=== PATIENT | female | born 1960 | race Caucasian/White ===

== ENCOUNTER 2017-03-09 09:54 | Emergency (ER) | payer BC ==
[~2017-03-09] VITALS: Ht 165.1 cm; Wt 89.0 kg
[2017-03-09 10:24] VITALS: BP 149/87; PULSE 81; RESP 16; TEMP 98; O2SAT 95
--- NOTE | 2017-03-09 10:39 | PD ---
HPI Chief Complaint: Numbness/Tingling Time Seen by Provider: 10:32 Travel History International Travel<30 days: No Contact w/Intl Traveler<30days: No Traveled to known affect area: No History of Present Illness HPI PT C/O 2 WEEKS SYMPTOMS OF INTERMITTENT, DIZZINESS, ASSOC WITH TINGLING SENSATION TO HANDS/FEET BILATERALLY, NO LATERALIZING WEAKNESS, NO GERARD/FEVER/COUGH /PROD SPUTUM. LASTS ABOUT 10-20MINUTES THEN RESOLVES ON ITS OWN. PATIENT HAS NOT FOLLOW UP WITH HER PCP ABOUT THIS, DESPITE THE FACT THAT HAS BEEN GOING ON FOR WEEKS. PCP IS DR PORTER ALL:[facility] PMHX PFSH Social History Tobacco Use: No Allergies-Medications (Allergen,Severity, Reaction): Coded Allergies: No Known Allergies (Unverified , 03/09/17) Reported Meds & Prescriptions Reported Meds & Active Scripts Active No Active Prescriptions or Reported Medications Review of Systems Except as stated in HPI: all other systems reviewed are Neg General / Constitutional: No: Fever Eyes: No: Visual changes HENT: No: Headaches Cardiovascular: No: Chest Pain or Discomfort Respiratory: No: Shortness of Breath Gastrointestinal: No: Abdominal Pain Genitourinary: No: Dysuria Musculoskeletal: No: Pain Skin: No Rash Neurologic: Positive: Paresthesia, No: Weakness Psychiatric: No: Depression Endocrine: No: Polydipsia Hematologic/Lymphatic: No: Easy Bruising Physical Exam Narrative GENERAL: SKIN: Warm and dry. HEAD: Atraumatic. Normocephalic. EYES: Pupils equal and round. No scleral icterus. No injection or drainage. ENT: No nasal bleeding or discharge. Mucous membranes pink and moist. NECK: Trachea midline. No JVD. CARDIOVASCULAR: Regular rate and rhythm. RESPIRATORY: No accessory muscle use. Clear to auscultation. Breath sounds equal bilaterally. GASTROINTESTINAL: Abdomen soft, non-tender, nondistended. Hepatic and splenic margins not palpable. MUSCULOSKELETAL: Extremities without clubbing, cyanosis, or edema. No obvious deformities. NEUROLOGICAL: Awake and alert. No obvious cranial nerve deficits. Motor grossly within normal limits. Five out of 5 muscle strength in the arms and legs. Normal speech. PSYCHIATRIC: Appropriate mood and affect; insight and judgment normal. Data Data Last Documented VS Orders Orders Electrocardiogram (03/09/17 10:32) Complete Blood Count With Diff (03/09/17 10:32) Comprehensive Metabolic Panel (03/09/17 10:32) Troponin I (03/09/17 10:32) Prothrombin Time / Inr (Pt) (03/09/17 10:32) Act Partial Throm Time (Ptt) (03/09/17 10:32) Lipase (03/09/17 10:32) Urinalysis - C+S If Indicated (03/09/17 10:32) Thyroid Stimulating Hormone (03/09/17 10:32) Chest, Single Ap (03/09/17 10:32) Ct Brain W/O Iv Contrast(Rout) (03/09/17 10:32) Ed Discharge Order (03/09/17 12:21) Labs Laboratory Tests Test 03/09/17 11:07 White Blood Count 3.5 TH/MM3 Red Blood Count 4.90 MIL/MM3 Hemoglobin 14.3 GM/DL Hematocrit 43.5 % Mean Corpuscular Volume 88.8 FL Mean Corpuscular Hemoglobin 29.1 PG Mean Corpuscular Hemoglobin Concent 32.7 % Red Cell Distribution Width 12.9 % Platelet Count 195 TH/MM3 Mean Platelet Volume 9.1 FL Neutrophils (%) (Auto) 56.7 % Lymphocytes (%) (Auto) 34.2 % Monocytes (%) (Auto) 7.1 % Eosinophils (%) (Auto) 1.3 % Basophils (%) (Auto) 0.7 % Neutrophils # (Auto) 2.0 TH/MM3 Lymphocytes # (Auto) 1.2 TH/MM3 Monocytes # (Auto) 0.3 TH/MM3 Eosinophils # (Auto) 0.0 TH/MM3 Basophils # (Auto) 0.0 TH/MM3 CBC Comment DIFF FINAL Differential Comment Prothrombin Time 10.5 SEC Prothromb Time International Ratio 1.0 RATIO Activated Partial Thromboplast Time 27.5 SEC Urine Collection Type VOIDED Urine Color YELLOW Urine Turbidity CLEAR Urine pH 6.5 Urine Specific [place] 1.015 Urine Protein NEG mg/dL Urine Glucose (UA) NEG mg/dL Urine Ketones NEG mg/dL Urine Occult Blood NEG Urine Nitrite NEG Urine Bilirubin NEG Urine Leukocyte Esterase NEG Urine WBC 0-2 /hpf Microscopic Urinalysis Comment CULT NOT INDICATED Urine Collection Time 1107 Blood Urea Nitrogen 13 MG/DL Creatinine 0.90 MG/DL Random Glucose 83 MG/DL Total Protein 7.0 GM/DL Albumin 3.4 GM/DL Calcium Level 8.5 MG/DL Alkaline Phosphatase 74 U/L Aspartate Amino Transf (AST/SGOT) 25 U/L Alanine Aminotransferase (ALT/SGPT) 31 U/L Total Bilirubin 1.0 MG/DL Sodium Level 140 MEQ/L Potassium Level 3.8 MEQ/L Chloride Level 106 MEQ/L Carbon Dioxide Level 28.4 MEQ/L Anion Gap 6 MEQ/L Estimat Glomerular Filtration Rate 65 ML/MIN Troponin I LESS THAN 0.02 NG/ML Lipase 107 U/L Thyroid Stimulating Hormone 3rd Gen 2.540 uIU/ML MDM Medical Decision Making Medical Screen Exam Complete: Yes Emergency Medical Condition: Yes Medical Record Reviewed: Yes Interpretation(s) NSR , 67, NL INTERVALS, NO STEMI PATTERN. Differential Diagnosis SUB ACUTE CVA V ICH V HYPOGLYCEMIA V THYROID DISORDER V Narrative Course CT NEG FOR ICH/ISCHEMIC CVA OR BRAIN MASS, THYROID FUNCTION NORMAL...ELECTROLYTES NORMAL, Diagnosis Primary Impression: Paresthesia Patient Instructions: General Instructions, Paresthesia (ED) Additional Instructions: PLEASE MAKE AN APPOINTMENT WITH YOUR DOCTOR TO HAVE FURTHER EVALUATION, TODAY YOU HAD NORMAL THYROID TEST, NORMAL LIVER/KIDNEY/PANCREAS FUNCTIONS, NORMAL ELECTROLYTES AND CT HEAD DID NOT SHOW EVIDENCE OF BRAIN BLEED, BRAIN MASS OR OF STROKE (OVER THE PAST 2 WEEKS). Scripts No Active Prescriptions or Reported Meds Disposition: 01 DISCHARGE HOME Condition: Stable Gabe Russo MD Mar 09, 2017 10:39
--- NOTE | 2017-03-09 11:02 | RADRPT ---
EXAM DATE/TIME: 03/09/2017 10:51 [facility] COMPARISON: No previous studies available for comparison. INDICATIONS : Dizziness. Left arm numbness and tingling. RADIATION DOSE: 62.61 CTDIvol (mGy) MEDICAL HISTORY : None SURGICAL HISTORY : None. ENCOUNTER: Initial ACUITY: 2 weeks PAIN SCALE: 0/10 LOCATION: cranial TECHNIQUE: Multiple contiguous axial images were obtained of the head. Using automated exposure control and adj ustment of the mA and/or kV according to patient size, radiation dose was kept as low as reasonably a chievable to obtain optimal diagnostic quality images. DICOM format image data is available electro nically for review and comparison. FINDINGS: CEREBRUM: The ventricles are normal for age. No evidence of midline shift, mass lesion, hemorrhage or acute in farction. No extra-axial fluid collections are seen. POSTERIOR FOSSA: The cerebellum and brainstem are intact. The 4th ventricle is midline. The cerebellopontine angle i s unremarkable. EXTRACRANIAL: The visualized portion of the orbits is intact. SKULL: The calvaria is intact. No evidence of skull fracture. CONCLUSION: No acute intracranial findings. Dm Landrum MD on March 09, 2017 at 10:55 Board Certified Radiologist. This report was verified electronically.
[2017-03-09 11:16] LABS: BILIRUBIN, URINE NEG (NEG); BLOOD, URINE NEG (NEG); GLUCOSE,URINE NEG (NEG); KETONE, URINE NEG (NEG); NITRITE,URINE NEG (NEG); PH, URINE 6.5 (5.0-8.5); URINE LEUKOCYTE ESTERASE NEG (NEG)
--- NOTE | 2017-03-09 11:20 | RADRPT ---
EXAM DATE/TIME: 03/09/2017 11:00 [facility] COMPARISON: No previous studies available for comparison. INDICATIONS : Short of breath, chest pain. MEDICAL HISTORY : None. SURGICAL HISTORY : None. ENCOUNTER: Initial ACUITY: 3 days PAIN SCORE: 1/10 LOCATION: Bilateral chest FINDINGS: A single view of the chest demonstrates the lungs to be symmetrically aerated without evidence of mas s, infiltrate or effusion. The cardiomediastinal contours are unremarkable. Osseous structures are intact. CONCLUSION: No acute disease. Twan Guido Jr., MD on March 09, 2017 at 11:17 Board Certified Radiologist. This report was verified electronically.
[2017-03-09 11:23] LABS: CHLORIDE 106 MEQ/L (98-107); SODIUM (NA) 140 MEQ/L (136-145)
[2017-03-09 11:24] LABS: URINE COLOR YELLOW (YELLW/STRAW); WBC, URINE 0-2 /hpf (0-5)
[2017-03-09 11:27] LABS: ALBUMIN 3.4 GM/DL (3.4-5.0); BASOPHIL % 0.7 % (0.0-2.0); BICARBONATE 28.4 MEQ/L (21.0-32.0); CALCIUM 8.5 MG/DL (8.5-10.1); EOSINOPHIL % 1.3 % (0.0-4.0); GLUCOSE,RANDOM 83 MG/DL (74-106); HEMATOCRIT 43.5 % (35.0-46.0); HEMOGLOBIN 14.3 GM/DL (11.6-15.3); LIPASE 107 U/L (73-393); LYMPH % 34.2 % (9.0-44.0); LYMPHOCYTE # 1.2 TH/MM3 (1.0-4.8); MEAN CELL VOLUME 88.8 FL (80.0-100.0); MEAN CORPUSCULAR HEMOGLOBIN 29.1 PG (27.0-34.0); MEAN CORPUSCULAR HGB CONC 32.7 % (32.0-36.0); MEAN PLATELET VOLUME 9.1 FL (7.0-11.0); MONO % 7.1 % (0.0-8.0); MONOCYTE # 0.3 TH/MM3 (0-0.9); NEUT % 56.7 % (16.0-70.0); PLATELET COUNT 195 TH/MM3 (150-450); RED CELL DISTRIBUTION WIDTH 12.9 % (11.6-17.2); WHITE BLOOD COUNT 3.5 TH/MM3 (4.0-11.0)
[2017-03-09 11:28] LABS: BLOOD UREA NITROGEN 13 MG/DL (7-18)
[2017-03-09 11:30] LABS: ALT (GPT) 31 U/L (10-53); AST (GOT) 25 U/L (15-37); GLOMERULAR FILTRATION RATE 65 ML/MIN (>89)
[2017-03-09 11:33] LABS: ALKALINE PHOSPHATASE 74 U/L (45-117)
[2017-03-09 11:36] LABS: PROTHROMBIN TIME - PATIENT 10.5 SEC (9.8-11.6); TROPONIN I LESS THAN 0.02 NG/ML (0.02-0.05)
[2017-03-09 12:30] VITALS: BP 149/85
--- NOTE | 2017-03-09 22:45 | EKG ---
Date Performed: 03/09/2017 Time Performed: 10:42:00 PTAGE: 56 years EKG: Sinus rhythm NORMAL ECG NO PREVIOUS TRACING DOCTOR: Grant Yeager Interpretating Date/Time 03/09/2017 22:44:28
== END 2017-03-09 12:43 | disposition home or self-care (01) ==
LOC: PHED 09:54
DX: R20.2 Paresthesia of skin (principal)
CPT/HCPCS: 70450; 71045; 80053; 81001; 83690; 84443; 84484; 85025; 85610; 85730; 93005; 99285

== ENCOUNTER 2017-04-29 18:00 | Emergency (ER) | payer BC ==
[~2017-04-29] VITALS: Ht 165.1 cm; Wt 90.0 kg
[2017-04-29 18:18] VITALS: BP 183/85; PULSE 106; RESP 16; TEMP 98; O2SAT 95
[2017-04-29] MEDS ORDERED: ZITHTAB PO (18:22)
[2017-04-29] MEDS ORDERED: PRED20 PO (18:22)
[2017-04-29] MEDS ORDERED: BENZ1CAP51 PO (18:22)
--- NOTE | 2017-04-29 18:24 | PD ---
HPI Chief Complaint: Cold / Flu Symptoms Time Seen by Provider: 18:14 Travel History International Travel<30 days: No Contact w/Intl Traveler<30days: No Traveled to known affect area: No History of Present Illness HPI 56-year-old female presents to the emergency department for evaluation of dry cough for 3 weeks. She also states she started with bilateral ear pain and sore throat yesterday. She reports intermittent low-grade fevers. No chest pain. No abdominal pain. She states she feel nauseated yesterday, but did not vomit. She reports history lymphedema to the left lower extremity and possible TIA. She is not currently on any prescribed medications. She has been taking Mucinex [id number] without improvement. No exacerbating or alleviating factors. Moderate severity. PFSH Past Medical History Cancer: Yes (melanoma) Cerebrovascular Accident: Yes (possible TIA) Past Surgical History Other Surgery: Yes (lymphnodes removed from left groin r/t melanoma) Social History Alcohol Use: No Tobacco Use: No Substance Use: No Allergies-Medications (Allergen,Severity, Reaction): Coded Allergies: No Known Allergies (Unverified , 04/29/17) Reported Meds & Prescriptions Reported Meds & Active Scripts Active No Active Prescriptions or Reported Medications Review of Systems Except as stated in HPI: all other systems reviewed are Neg Physical Exam Narrative GENERAL: Well-nourished, well-developed female patient, ambulatory. Afebrile. SKIN: Focused skin assessment warm/dry. HEAD: Normocephalic. Atraumatic. ENT: Mucosa pink and moist. No erythema or exudates. No uvular edema. No uvular , palatal, or tonsillar deviation. Airway patent. Nasal turbinates appear normal without nasal blood, purulent drainage or septal hematoma. Bilateral tympanic membranes are clear without erythema or perforation. EYES: No scleral icterus. No injection or drainage. NECK: Supple, trachea midline. No JVD or lymphadenopathy. CARDIOVASCULAR: Regular rate and rhythm without murmurs, gallops, or rubs. RESPIRATORY: Breath sounds equal bilaterally. No accessory muscle use. Lungs sounds are clear to auscultation. Dry cough noted. GASTROINTESTINAL: Abdomen soft, non-tender, nondistended. MUSCULOSKELETAL: No cyanosis, or edema. BACK: Nontender without obvious deformity. No CVA tenderness. Data Data Last Documented VS Vital Signs Date Time Temp Pulse Resp B/P (MAP) Pulse Ox O2 Delivery O2 Flow Rate FiO2 04/29/17 18:18 98.0 106 16 183/85 (117) 95 MDM Medical Decision Making Medical Screen Exam Complete: Yes Emergency Medical Condition: Yes Medical Record Reviewed: Yes Differential Diagnosis URI versus bronchitis versus pneumonia versus sinusitis Narrative Course 56-year-old female presents to the emergency department for evaluation and dry cough for 3 weeks, sore throat and bilateral ear pain since yesterday. Patient will be started on azithromycin, prednisone, benzonatate capsules. She is instructed to follow-up with her primary care physician. She is return here for any acute worsening of symptoms. The patient was discharged in stable condition with instructions, including return instructions and follow up instructions. Diagnosis Primary Impression: Upper respiratory infection Qualified Codes: J06.9 - Acute upper respiratory infection, unspecified Referrals: Primary Care Physician call for appointment Patient Instructions: General Instructions, Upper Respiratory Infection (ED) Additional Instructions: Take antibiotic as directed until gone. Take prednisone as directed. Take benzonatate capsules as directed as needed for cough. Follow-up with your primary care physician. Return to the emergency department for any acute worsening of symptoms. Med/Other Pt SpecificInfo: Prescription(s) given Scripts Prednisone (Prednisone) 20 Mg Tab 40 MG PO DAILY for 5 Days, #10 TAB 0 Refills Take 40 mg (2 tablets) daily for 5 days Prov: Arminda Garcia 04/29/17 Benzonatate (Benzonatate) 200 Mg Cap 200 MG PO TID Y for COUGH, #21 CAP 0 Refills Prov: Arminda Garcia 04/29/17 Azithromycin (Zithromax Z-Leoncio) 250 Mg Dspk 250 MG PO DIRECTED for Infection, #1 DSPK 0 Refills 500 MG (2 tabs) day 1, then 1 tab days 2-5. Prov: Arminda Garcia 04/29/17 Disposition: 01 DISCHARGE HOME Condition: Stable Arminda Garcia Apr 29, 2017 18:24
== END 2017-04-29 18:54 | disposition home or self-care (01) ==
LOC: PHEFT 18:00
DX: J06.9 Acute upper respiratory infection, unspecified (principal); R05 Cough; H92.03 Otalgia, bilateral; R50.9 Fever, unspecified; R11.0 Nausea; Z85.828 Personal history of other malignant neoplasm of skin
CPT/HCPCS: 99284